=== PATIENT | male | born 2000 | race Caucasian/White ===

== ENCOUNTER 2025-02-18 00:21 | Emergency (ER) | payer OTHER ==
[~2025-02-18] VITALS: Ht 180.3 cm; Wt 72.1 kg
[2025-02-18] MEDS: FAMOTIDINE 20 MG/2 ML VIAL IVP ONE (01:58)
[2025-02-18] MEDS: NS (Normal Saline) 0.9% 1,000 ML IV ONE (01:58)
[2025-02-18] MEDS ORDERED: EPIP0.3I2 IM (02:00)
[2025-02-18] MEDS ORDERED: HYDR-3363 PO (02:00)
[2025-02-18] MEDS ORDERED: PRED20TA PO (02:00)
[2025-02-18] MEDS ORDERED: FAMO20TA PO (02:00)
[2025-02-18 03:06] VITALS: BP 104/53; TEMP 98.9; O2SAT 97
== END 2025-02-18 03:08 | disposition home or self-care (01) ==
LOC: M ED 00:21
DX: T78.05XA Anaphylactic reaction due to tree nuts and seeds, initial encounter (principal)
CPT/HCPCS: 93041; 94760; 96361; 96374; 96375; 99284; J1100; J1308